=== PATIENT | male | born 1990 | race Caucasian/White ===

== ENCOUNTER 2019-09-21 09:08 | Outpatient (CLI) | payer OTHER, SELFPAY ==
[2019-09-21 10:29] LABS: Liquefaction Semen Complete in 30 min. (<30 minutes); Semen Color Opaque (Grey-opaque); Semen Viscosity Not Increased (Not Increa.); Volume Semen 2 mL (1.5-5.0); pH Semen 8 (7.2-8.0)
[2019-09-21 10:30] LABS: Semen Immotility 70 %; Semen Non-Progressive Motility 10 %; Semen Progressive Motility 20 % (>32)
[2019-09-21 10:32] LABS: Semen Morphology Result to Follow; Semen Total Motility 30 (>40% (PM+NP)); Sperm Count 49.6 Mil/mL (60-150 million/mL)
[2019-09-28 21:36] LABS: Fructose, Semen 290 mg/dL (150-600)
== END 2019-09-21 09:09 | disposition home or self-care (01) ==
PROVIDERS: PCP Family Medicine
DX: Z31.41 Encounter for fertility testing (principal)
CPT/HCPCS: 82757; 88160; 89320